=== PATIENT | female | born 1990 | race Caucasian/White ===

== ENCOUNTER 2017-01-05 15:13 | Observation (INO) | payer BC ==
[~2017-01-05] VITALS: Ht 165.1 cm; Wt 115.8 kg
[~2017-01-05 15:13] MED LIST: AMOXICILLIN875 MG PO; CIPRO500 MG PO; COMPAZINE10 M PO; FLEXERIL10 MG PO; GARAMYCIN5 ML OP; NO MEDS; NORCO 5/325 TAB1 TAB PO; [UNRECOGNIZED DRUG - REMARK]
[2017-01-05] MEDS ORDERED: PRENA1 CHEW TA1.4 M1 PO (16:19)
[2017-01-05] MEDS ORDERED: GLUCOPHAGE XR500 M1 PO (16:19)
== END 2017-01-05 18:15 ==
LOC: LDR 15:13
PROVIDERS: ADMIT Obstetrics & Gynecology
DX: O46.93 Antepartum hemorrhage, unspecified, third trimester (principal); Z3A.34 34 weeks gestation of pregnancy

== ENCOUNTER 2017-01-10 09:12 | Observation (INO) | payer BC ==
[~2017-01-10 09:12] MED LIST changes: +GLUCOPHAGE XR500 M1 PO; +PRENA1 CHEW TA1.4 M1 PO
== END 2017-01-10 12:24 ==
LOC: LDR 09:12
PROVIDERS: ADMIT Obstetrics & Gynecology Obstetrics
DX: Z03.71 Encounter for suspected problem with amniotic cavity and membrane ruled out (principal); Z3A.35 35 weeks gestation of pregnancy